=== PATIENT | male | born 2000 | race African-American/Black ===

== ENCOUNTER 2020-08-16 21:34 | Emergency (ER) | payer OTHER, SELFPAY ==
[2020-08-16] MEDS ORDERED: ACETAMINOPHEN 325 MG TABLET ONE (22:03)
--- NOTE | 2020-08-16 22:34 | EDPHYS ---
Physician Documentation [facility] Name: Cee Brown Age: 20 yrs Sex: Male : 2000 Arrival Date: 08/16/2020 Time: 21:35 Bed Waiting Private MD: ED Physician Blake Albrecht HPI: 08/16 22:06 This 20 yrs old Black Male presents to ER via Ambulatory with complaints of Sore Throat.cp 22:06 The patient presents with sore throat. Onset: The symptoms/episode began/occurred 3 cp day(s) ago. Associated signs and symptoms: Pertinent positives: fever, Pertinent negatives chills, cough, diarrhea, headache, vomiting, body aches. Historical: - Allergies: 21:46 No Known Allergies; ca1 - Home Meds: 21:46 None [Active]; ca1 - PMHx: 21:46 None; ca1 - PSHx: 21:46 None; ca1 - Immunization history:: Adult Immunizations up to date, Flu vaccine is not up to date. - Social history:: Smoking status: Patient denies any tobacco usage or history of. ROS: 22:07 Eyes: Negative for injury, pain, redness, and discharge. cp 22:07 Constitutional: Positive for fever, Negative for body aches, chills, poor PO intake. 22:07 ENT: Positive for ear pain, sore throat, Negative for sinus congestion, sinus pain. 22:07 Cardiovascular: Negative for chest pain, palpitations. 22:07 Respiratory: Negative for cough, shortness of breath, wheezing. 22:07 Skin: Negative for rash. 22:07 Neuro: Negative for headache. 22:07 All other systems are negative. Exam: 22:08 Head/Face: Normocephalic, atraumatic. cp 22:08 Constitutional: The patient appears in no acute distress, alert, awake, non-toxic, well developed, well nourished. 22:08 Eyes: Periorbital structures: appear normal, Conjunctiva: normal, no exudate, no injection, Lids and lashes: appear normal, bilaterally. 22:08 ENT: External ear(s): are unremarkable, Ear canal(s): are normal, clear, TM's: bulging, is not appreciated, bilaterally, erythema, that is mild, on the right, Nose: is normal, Mouth: Lips: moist, Oral mucosa: moist, Posterior pharynx: Airway: no evidence of obstruction, patent, Tonsils: bilaterally enlarged, with erythema, Uvula: midline, erythema, that is moderate. 22:08 Neck: Lymph nodes: no appreciated lymphadenopathy. 22:08 Chest/axilla: Inspection: normal. 22:08 Cardiovascular: Rate: normal. 22:08 Respiratory: the patient does not display signs of respiratory distress, Respirations: normal, no use of accessory muscles, labored breathing, is not present. Vital Signs: 21:43 BP 132 / 79; Pulse 85; Resp 16 S; Temp 100.5(TE); Pulse Ox 100% on R/A; Weight 77.11 kg ca1 (R); Height 6 ft. 0 in. (182.88 cm) (R); 21:43 Body Mass Index 23.06 (77.11 kg, 182.88 cm) ca1 MDM: 22:10 Differential diagnosis: apthous stomatitis, group A strep tonsillitis, latonia's angina, cp mononucleosis, peritonsillar abscess pharyngitis, retropharyngeal abcess tonsillitis, uvulitis. 22:33 Data reviewed: vital signs, nurses notes, lab test result(s), and as a result, I will cp discharge patient. 22:33 Counseling: I had a detailed discussion with the patient and/or guardian regarding: the cp historical points, exam findings, and any diagnostic results supporting the discharge/admit diagnosis, lab results, to return to the emergency department if symptoms worsen or persist or if there are any questions or concerns that arise at home. 22:34 Patient medically screened. cp 08/16 21:47 Order name: Flu ca1 08/16 21:47 Order name: Strep ca1 08/16 21:47 Order name: COVID-19 ca1 08/16 22:43 Order name: Throat Culture EDMS Administered Medications: 21:55 Drug: Tylenol 650 mg Route: PO; ca1 Disposition: 08/17 07:06 Co-signature as Attending Physician, Blake Albrecht MD. mh7 Disposition: 08/16/20 22:34 Discharged to Home. Impression: Acute tonsillitis, unspecified, Otitis media, unspecified, right ear. - Condition is Stable. - Discharge Instructions: Otitis Media, Adult, Tonsillitis. - Prescriptions for Augmentin 875- 125 mg Oral Tablet - take 1 tablet by ORAL route every 12 hours for 10 days; 20 tablet. Ibuprofen 800 mg Oral Tablet - take 1 tablet by ORAL route every 8 hours As needed take with food; 30 tablet. - Work release form, Medication Reconciliation Form, Thank You Letter, Antibiotic Education, Prescription Opioid Use form. - Follow up: Private Physician; When: 2 - 3 days; Reason: Worsening of condition. - Problem is new. - Symptoms are unchanged. Signatures: Dispatcher [employer] EDMS Marlon De Jesus RN RN sg Momo Moore PA PA cp Arabella Gruber RN RN ca1 Blake Albrecht MD MD mh7 Corrections: (The following items were deleted from the chart) 08/16 22:51 22:34 08/16/2020 22:34 Discharged to Home. Impression: Acute tonsillitis, unspecified; sg Otitis media, unspecified, right ear. Condition is Stable. Prescriptions for Augmentin 875-125 mg Oral Tablet - take 1 tablet by ORAL route every 12 hours for 10 days; 20 tablet, Ibuprofen 800 mg Oral Tablet - take 1 tablet by ORAL route every 8 hours As needed take with food; 30 tablet. and Forms are Medication Reconciliation Form, Thank You Letter, Antibiotic Education, Prescription Opioid Use. Follow up: Private Physician; When: 2 - 3 days; Reason: Worsening of condition. Problem is new. Symptoms are unchanged. cp 08/17 14:32 08/16 21:50 Differential diagnosis: apthous stomatitis, group A strep tonsillitis, cp latonia's angina, mononucleosis, peritonsillar abscess pharyngitis, retropharyngeal abcess tonsillitis, uvulitis, cp
--- NOTE | 2020-08-16 22:34 | ER ---
Nurse's Notes [facility] Name: Cee Brown Age: 20 yrs Sex: Male : 2000 Arrival Date: 08/16/2020 Time: 21:35 Bed Waiting Private MD: Diagnosis: Acute tonsillitis, unspecified;Otitis media, unspecified, right ear Presentation: 08/16 21:43 Chief complaint: Patient states: Bilateral ear pain, body aches, sore throat, ca1 headaches, muscle pains, fatigue x 3 days. Coronavirus screen: Client denies travel out of the [place] in the last 14 days. fatigue, headache, muscle pain, sore throat, Client presents with at least one sign or symptom that may indicate coronavirus-19. Standard/surgical mask placed on the client. Provider contacted for isolation considerations. The client denies any previous COVID testing. Ebola Screen: Patient negative for fever greater than or equal to 101.5 degrees Fahrenheit, and additional compatible Ebola Virus Disease symptoms Patient denies exposure to infectious person. Patient denies travel to an Ebola-affected area in the 21 days before illness onset. No symptoms or risks identified at this time. Initial Sepsis Screen: Does the patient meet any 2 criteria? No. Patient's initial sepsis screen is negative. Does the patient have a suspected source of infection? No. Patient's initial sepsis screen is negative. Risk Assessment: Do you want to hurt yourself or someone else? Patient reports no desire to harm self or others. Onset of symptoms was August 16, 2020. 21:43 Method Of Arrival: Ambulatory ca1 21:43 Acuity: ZACHARY 4 ca1 Historical: - Allergies: 21:46 No Known Allergies; ca1 - Home Meds: 21:46 None [Active]; ca1 - PMHx: 21:46 None; ca1 - PSHx: 21:46 None; ca1 - Immunization history:: Adult Immunizations up to date, Flu vaccine is not up to date. - Social history:: Smoking status: Patient denies any tobacco usage or history of. Screenin:00 Abuse screen: Denies threats or abuse. Nutritional screening: No deficits noted. ca1 Tuberculosis screening: No symptoms or risk factors identified. Fall Risk None identified. Assessment: 22:00 General: Appears in no apparent distress. comfortable, Behavior is calm, cooperative, ca1 appropriate for age. General:. Pain: Complains of pain in right ear and left ear Pain currently is 8 out of 10 on a pain scale. Pain began 2-3 days ago. Neuro: Level of Consciousness is awake, alert, obeys commands, Oriented to person, place, time, situation. EENT: Throat is reddened has enlarged tonsils bilaterally. EENT: Ear canal clear on left ear and right ear. Derm: Skin is intact, is healthy with good turgor, Skin is pink, warm \T\ dry. Musculoskeletal: Circulation, motion, and sensation intact. Capillary refill < 3 seconds. Vital Signs: 21:43 BP 132 / 79; Pulse 85; Resp 16 S; Temp 100.5(TE); Pulse Ox 100% on R/A; Weight 77.11 kg ca1 (R); Height 6 ft. 0 in. (182.88 cm) (R); 21:43 Body Mass Index 23.06 (77.11 kg, 182.88 cm) ca1 ED Course: 21:35 Patient arrived in ED. cl3 21:45 Triage completed. ca1 21:46 Arm band placed on right wrist. ca1 21:55 Flu Sent. ca1 21:55 Strep Sent. ca1 22:00 Patient has correct armband on for positive identification. ca1 22:00 No provider procedures requiring assistance completed. Flu and/or RSV swab sent to lab. ca1 Strep swab sent to lab. Patient did not have IV access during this emergency room visit. 22:06 Momo Moore PA is PHCP. sandy 22:06 Blake Albrecht MD is Attending Physician. cp Administered Medications: 21:55 Drug: Tylenol 650 mg Route: PO; ca1 Outcome: 22:34 Discharge ordered by . cp 22:51 Patient left the ED. sg Addendum: 08/18/2020 14:36 Addendum: COVID-19 Result: Negative result given to RN to notify pt. Attempted to d m5 contact pt regarding negative COVID-19 swab results. Unable to leave voice mail due to the number provided was either not a working number, the voice mail has not been set up, or the voice mailbox is full.. Signatures: Luisana Hansen RN RN dmMarlon Schwartz RN RN sg Page, Corey, PA PA cp Acob, Cheryl, RN RN ca1 Jack Harvey cl3
[2020-08-16 22:58] VITALS: BP 132/79; TEMP 100.5; O2SAT 100
== END 2020-08-16 22:51 | disposition home or self-care (01) ==
LOC: ER 21:34
DX: J03.90 Acute tonsillitis, unspecified (principal); Z20.828 Contact with and (suspected) exposure to other viral communicable diseases; H66.91 Otitis media, unspecified, right ear
CPT/HCPCS: 87070; 87081; 87804; 99283; U0002

== ENCOUNTER 2020-11-28 16:41 | Emergency (ER) | payer BC, SELFPAY ==
--- NOTE | 2020-11-28 19:14 | RAD REPORT ---
EXAM DESCRIPTION: RAD - Ankle Left 3 View -11/28/2020 5:53 pm CLINICAL HISTORY: Left ankle pain status post injury FINDINGS: No fracture or dislocation is seen. Marked lateral soft tissue swelling
--- NOTE | 2020-11-28 20:08 | EDPHYS ---
Physician Documentation [facility] Name: Cee Brown Age: 20 yrs Sex: Male : 2000 Arrival Date: 11/28/2020 Time: 16:42 Bed 27 Private MD: TEDDY Physician Momo Yañez HPI: 11/28 19:49 This 20 yrs old Black Male presents to ER via Ambulatory with complaints of Ankle Pain. cp 19:49 The patient presents with an injury, pain, that is acute. The complaints affect the cp left ankle. Onset: The symptoms/episode began/occurred 2 day(s) ago. Context: The problem was sustained at a sports field or court, The mechanism of injury involved inversion of the affected ankle. The patient can fully bear weight on the affected extremity. the patient is able to ambulate, with moderate difficulty. Associated signs and symptoms: Pertinent negatives: calf tenderness, numbness, tingling. Modifying factors: the symptoms are aggravated by weight bearing. Historical: - Allergies: 17:07 No Known Allergies; ss - Home Meds: 17:07 None [Active]; ss - PMHx: 17:07 None; ss - PSHx: 17:07 None; ss - Immunization history:: Adult Immunizations up to date. - Social history:: Smoking status: Patient denies any tobacco usage or history of. ROS: 19:52 Constitutional: Negative for fever. cp 19:52 MS/extremity: Positive for pain, swelling, tenderness, Negative for decreased range of motion, paresthesias. 19:52 Skin: Negative for rash. 19:52 All other systems are negative. Exam: 19:55 Musculoskeletal/extremity: Extremities: grossly normal except: noted in the lateral cp malleolus of left ankle: pain, swelling, tenderness, ROM: limited active range of motion due to pain, in the left ankle, Pulses: noted to be 2+ in the left dorsalis pedis artery, Sensation intact. Achilles tendon palpated and intact, no pain palpated at proximal left fibula and/or base of fifth left metatarsal. Vital Signs: 17:05 BP 139 / 71; Pulse 62; Resp 14; Temp 99.0(TE); Pulse Ox 99% ; Weight 77.11 kg; Height 6 ss ft. 0 in. (182.88 cm); Pain 7/10; 17:05 Body Mass Index 23.06 (77.11 kg, 182.88 cm) Procedures: 20:35 Splinting: Splint applied to left ankle using Air Cast, applied by nurse. Examined by cp me, post splint application: neurovascular intact, Patient tolerated well. MDM: 19:39 Patient medically screened. cp 20:00 Differential diagnosis: fracture, sprain, dislocation. cp 20:06 Data reviewed: vital signs, nurses notes, radiologic studies, plain films. cp 20:06 Test interpretation: by ED physician or midlevel provider: xrays of left ankle negative cp for fracture. Counseling: I had a detailed discussion with the patient and/or guardian regarding: the historical points, exam findings, and any diagnostic results supporting the discharge/admit diagnosis, radiology results, the need for outpatient follow up, a family practitioner. Response to treatment: the patient's symptoms have mildly improved after treatment, and as a result, I will discharge patient. 11/28 17:07 Order name: XRAY Ankle LEFT 3 view; Complete Time: 19:36 11/28 19:49 Order name: Crutches; Complete Time: 20:39 cp 11/28 19:49 Order name: Aircast Ankle Splint; Complete Time: 20:39 cp Administered Medications: 20:02 Drug: Ibuprofen 800 mg Route: PO; 20:39 Follow up: Response: No adverse reaction em Disposition: 20:15 Chart complete. 11/29 11:11 Co-signature as Attending Physician, Momo Yañez MD I agree with the assessment and apurva plan of care. Disposition: 11/28/20 20:07 Discharged to Home. Impression: Sprain of ankle - left. - Condition is Stable. - Discharge Instructions: Elastic Bandage and RICE, Ankle Sprain. - Prescriptions for Ibuprofen 800 mg Oral Tablet - take 1 tablet by ORAL route every 8 hours As needed take with food; 30 tablet. - Medication Reconciliation Form, Thank You Letter, Antibiotic Education, Prescription Opioid Use form. - Follow up: Private Physician; When: 2 - 3 days; Reason: Worsening of condition. - Problem is new. - Symptoms have improved. Signatures: Dispatcher [employer] Marlon Tena RN RN sg Anderson, Corey, MD MD cha Munoz, Edgar, RN RN Lisa Hester RN RN Page, Momo, PA PA cp Corrections: (The following items were deleted from the chart) 11/28 20:42 20:07 11/28/2020 20:07 Discharged to Home. Impression: Sprain of ankle - left. em Condition is Stable. Forms are Medication Reconciliation Form, Thank You Letter, Antibiotic Education, Prescription Opioid Use. Follow up: Private Physician; When: 2 - 3 days; Reason: Worsening of condition. Problem is new. Symptoms have improved. cp
--- NOTE | 2020-11-28 20:08 | ER ---
Nurse's Notes [facility] Name: Cee Brown Age: 20 yrs Sex: Male : 2000 Arrival Date: 11/28/2020 Time: 16:42 Bed 27 Private MD: Diagnosis: Sprain of ankle-left Presentation: 11/28 17:05 Chief complaint: Patient states: L ankle pain that began Friday evening after landing ss wrong while playing basketball. Coronavirus screen: Client denies travel out of the [place] in the last 14 days. Ebola Screen: Patient denies exposure to infectious person. Patient denies travel to an Ebola-affected area in the 21 days before illness onset. Initial Sepsis Screen: Does the patient meet any 2 criteria? No. Patient's initial sepsis screen is negative. Does the patient have a suspected source of infection? No. Patient's initial sepsis screen is negative. Risk Assessment: Do you want to hurt yourself or someone else? Patient reports no desire to harm self or others. Onset of symptoms was November 25, 2020. 17:05 Method Of Arrival: Ambulatory ss 17:05 Acuity: ZACHARY 4 ss Historical: - Allergies: 17:07 No Known Allergies; ss - Home Meds: 17:07 None [Active]; ss - PMHx: 17:07 None; ss - PSHx: 17:07 None; ss - Immunization history:: Adult Immunizations up to date. - Social history:: Smoking status: Patient denies any tobacco usage or history of. Screenin:00 Abuse screen: Denies threats or abuse. Nutritional screening: No deficits noted. em Tuberculosis screening: No symptoms or risk factors identified. Fall Risk None identified. Assessment: 20:00 General: Appears in no apparent distress. comfortable, Behavior is calm, cooperative, em appropriate for age. Pain: Complains of pain in left foot. Neuro: Level of Consciousness is awake, alert, obeys commands, Oriented to person, place, time, situation, Appropriate for age. Cardiovascular: Capillary refill < 3 seconds Patient's skin is warm and dry. Respiratory: Airway is patent Respiratory effort is even, unlabored, Respiratory pattern is regular, symmetrical. Derm: Skin is intact, is healthy with good turgor, Skin is pink, warm \T\ dry. Musculoskeletal: Capillary refill < 3 seconds, Range of motion: intact in all extremities, Swelling absent. Vital Signs: 17:05 BP 139 / 71; Pulse 62; Resp 14; Temp 99.0(TE); Pulse Ox 99% ; Weight 77.11 kg; Height 6 ss ft. 0 in. (182.88 cm); Pain 7/10; 17:05 Body Mass Index 23.06 (77.11 kg, 182.88 cm) ED Course: 16:42 Patient arrived in ED. ag5 17:06 Triage completed. ss 17:07 Arm band placed on left wrist. ss 18:19 XRAY Ankle LEFT 3 view In Process Unspecified. EDMS 18:20 Momo Moore PA is PHCP. cp 18:20 Momo Yañez MD is Attending Physician. cp 19:36 Bravo Martinez, RN is Primary Nurse. mw2 20:39 No provider procedures requiring assistance completed. Patient did not have IV access em during this emergency room visit. Administered Medications: 20:02 Drug: Ibuprofen 800 mg Route: PO; 20:39 Follow up: Response: No adverse reaction em Outcome: 20:07 Discharge ordered by MD. cp 20:39 Discharged to home with crutches. em 20:39 Condition: good 20:39 Discharge instructions given to patient, Instructed on discharge instructions, follow up and referral plans. medication usage, Demonstrated understanding of instructions, follow-up care, medications, Prescriptions given X 1. 20:42 Patient left the ED. em Signatures: Dispatcher [employer] Marlon Tena RN RN Bravo Martinez RN RN em Smirch, Shelby, RN RN Momo Moore PA PA cp [place], MyKena mw2 Calixto Zuleta ag5
[2020-11-28] MEDS ORDERED: IBUPROFEN 400 MG TAB ONE (20:19)
[2020-11-28 20:48] VITALS: BP 139/71; TEMP 99; O2SAT 99
== END 2020-11-28 20:42 | disposition home or self-care (01) ==
LOC: ER 16:41
DX: S93.402A Sprain of unspecified ligament of left ankle, initial encounter (principal); X58.XXXA Exposure to other specified factors, initial encounter; Y93.9 Activity, unspecified; Y92.89 Other specified places as the place of occurrence of the external cause
CPT/HCPCS: 99283

== ENCOUNTER 2024-12-27 10:01 | Emergency (ER) | payer BC, SELFPAY ==
--- OUTSIDE RECORDS SUMMARY | 2024-12-27 10:05 | XMS REPORT | Continuity of Care Document ---
Author Name Unknown Address [address] [place] [address] [facility] thconnect Address [address] [place] [address] Care Team Providers Care Research Associate Quality Control Qc Name Role Phone LAB90 Attending Clinician Unavailable DEBRA CARDENAS Attending Clinician Unava ilable GUU_SHENG_YAW Attending Clinician Unavailable GUU_SHENG_YAW Admitting Clinician Unavailable Payers Payer Name Policy Type Policy Number Effective Date Expirati on Date Source BCBS 2 [id number] 2023 00:00:00 Social History Social Habit Start Date Stop Date Quantity Comments Source Sexual orientation Suma Finley - External Alcohol intake 2023-12-25 00:00:00 2023-12-25 00:00:00 Current drinker of alcohol (finding) Yaneth Finley - External Tobacco use and exposure 2023-12-24 00:00:00 2023-12-24 00:00:00 Smokeless tobacco non-user Yaneth Finley - External History of Social function 2023-12-24 00:00:00 2023-12-24 00:00:00 Yaneth Finley - External Sex Assigned At 2000 00:00:00 2000 00:00:00 Yaneth Finley - External Smoking Status Start Date Stop Date Source Never smoked tobacco Yaneth Finley - External Vital Signs Vital Name Observation Time Observation Value Comments S ource Heart rate 2023-12-25 15:49:00 68 /min David Finley - External Body temperature 2023-12-25 15:49:00 36.72 Cinthya Yaneth Finley - External Respiratory rate 2023-12-25 15:49:00 18 /min Yaneth Pazclive - External Body height 2023-12-25 15:49:00 182.9 cm Geovanna Finley - External Body weight 2023-12-25 15:49:00 72.576 kg Geovanna Zeeold - External BMI 2023-12-25 15:49:00 21.70 kg/m2 Geovanna Finley - External Oxygen saturation in Arterial blood by Pulse oximetry 2023-12-25 15:49:00 98 /min Yaneth Pazjesus ld - External Systolic blood pressure 2023-12-25 15:49:00 114 mm[Hg] Yaneht Sejesus ld - External Diastolic blood pressure 2023-12-25 15:49:00 70 mm[Hg] Yaneth Sejaycobo ld - External Encounters Start Date/Time End Date/Time Encounter Type Admission Type Attending [facility] Care Department Encounter ID Source 2023-12-25 10:05:00 2023-12-25 10:05:00 Outpatient LAB90 [facility] [id number] [facility] 2023-12-25 09:30:00 2023-12-25 09:30:00 Outpatient DEBRA CARDENAS [id number] Yanethvesta Finley 2023-11-11 00:00:00 2023-11-11 00:00:00 Outpatient GUU_SHENG_Y AW [facility] [id number] [facility] Program Notes Date/Time Note Provider Source 2023-12-25 09:52:32 Chief Complaint Patient presents with New Patient Establish Care Wants to get tested for STD Kaela Garibay [facility]
--- NOTE | 2024-12-27 10:30 | RAD REPORT ---
EXAMINATION: XR RIGHT ANKLE CLINICAL INDICATION: . PAIN TECHNIQUE:Two view radiograph of the right ankle were obtained. COMPARISON: No prior exam. FINDINGS: No bone or joint abnormality detected.
--- NOTE | 2024-12-27 10:53 | ER ---
Nurse's Notes [facility] Name: Cee Brown Age: 24 yrs Sex: Male : 2000 Arrival Date: 12/27/2024 Time: 10:01 Bed 9 Private MD: Diagnosis: Sprain of ankle-right Presentation: 12/27 10:10 Chief complaint: Patient states: hurt right ankle/right foot "stepping down" at work. aa5 Coronavirus screen: At this time, the client does not indicate any symptoms associated with coronavirus-19. Ebola Screen: Patient denies travel to an Ebola-affected area in the 21 days before illness onset. Initial Sepsis Screen: Does the patient meet any 2 criteria? No. Patient's initial sepsis screen is negative. Does the patient have a suspected source of infection? No. Patient's initial sepsis screen is negative. Risk Assessment: Do you want to hurt yourself or someone else? Patient reports no desire to harm self or others. Onset of symptoms was December 2024. 10:10 Method Of Arrival: Ambulatory aa5 10:10 Acuity: ZACHARY 4 aa5 Historical: - Allergies: 10:11 No Known Allergies; aa5 - PMHx: 10:11 None; aa5 - PSHx: 10:11 left leg; aa5 - Immunization history:: Adult Immunizations unknown. - Infectious Disease History:: Denies. - Social history:: Smoking status: Patient denies any tobacco usage or history of. Screenin:10 [facility] ED Fall Risk Assessment (Adult) History of falling in the last 3 months, aa5 including since admission No falls in past 3 months (0 pts) Confusion or Disorientation No (0 pts) Intoxicated or Sedated No (0 pts) Impaired Gait No (0 pts) Mobility Assist Device Used No (0 pt) Altered Elimination No (0 pt) Score/Fall Risk Level 0 - 2 = Low Risk Oriented to surroundings, Maintained a safe environment, Educated pt \\T\\ family on fall prevention, incl call for assistance when getting out of bed, Assessed \\T\\ reinforced patient's understanding of fall precautions. Abuse screen: Denies threats or abuse. Nutritional screening: No deficits noted. Tuberculosis screening: No symptoms or risk factors identified. Assessment: 10:10 General: Appears comfortable, Behavior is calm, cooperative. Pain: Complains of pain in aa5 right ankle. Neuro: Level of Consciousness is awake, alert, obeys commands, Oriented to person, place, time, situation. Cardiovascular: Patient's skin is warm and dry. Respiratory: Airway is patent Respiratory effort is even, unlabored, Respiratory pattern is regular, symmetrical. GI: No signs and/or symptoms were reported involving the gastrointestinal system. : No signs and/or symptoms were reported regarding the genitourinary system. EENT: No signs and/or symptoms were reported regarding the EENT system. Derm: Skin is dry, Skin is normal, Skin temperature is warm. Musculoskeletal: right ankle. 11:24 Neuro: Level of Consciousness is awake, alert, obeys commands, Oriented to person, aa5 place, time, situation. Respiratory: Airway is patent Respiratory effort is even, unlabored, Respiratory pattern is regular, symmetrical. Derm: Skin is dry, Skin is normal, Skin temperature is warm. Vital Signs: 10:10 BP 133 / 79; Pulse 67; Resp 18 S; Temp 97.5(TE); Pulse Ox 99% on R/A; Weight 72.57 kg aa5 (R); Height 6 ft. 0 in. (R); 10:10 Body Mass Index 21.70 (72.57 kg, 182.88 cm) aa5 ED Course: 10:05 Patient arrived in ED. cj3 10:08 Momo Moore PA is PHCP. cp 10:08 Sukhwinder Sims MD is Attending Physician. cp 10:10 Arm band placed on. aa5 10:10 Patient has correct armband on for positive identification. Bed in low position. Call aa5 light in reach. Side rails up X 1. 10:11 Triage completed. aa5 10:12 Caren Mtz, YFN is Primary Nurse. aa5 10:24 XRAY Ankle RIGHT 3 view In Process Unspecified. EDMS 10:52 Christiano Goldberg MD is Referral Physician. cp 11:24 No provider procedures requiring assistance completed. Patient did not have IV access aa5 during this emergency room visit. Administered Medications: No medications were administered Medication: 10:10 VIS not applicable for this client. aa5 Outcome: 10:53 Discharge ordered by MD. cp 11:24 Discharged to home ambulatory, aa5 11:24 Condition: good 11:24 Discharge instructions given to patient, Instructed on discharge instructions, follow up and referral plans. Demonstrated understanding of instructions, follow-up care, 11:26 Patient left the ED. aa5 Signatures: Dispatcher [employer] Caren Lamb RN RN aa5 Momo Moore PA PA cp Johnson, Celeste cj3 Corrections: (The following items were deleted from the chart) 10:11 10:11 PSHx: None; aa5 aa5 19:32 11:24 Reassessment: Patient is alert, oriented x 3, equal unlabored respirations, skin aa5 warm/dry/pink. aa5 19:32 10:10 Derm: Skin is pink, warm \\T\\ dry. aa5 aa5
--- NOTE | 2024-12-27 10:53 | EDPHYS ---
Physician Documentation [facility] Name: Cee Brown Age: 24 yrs Sex: Male : 2000 Arrival Date: 12/27/2024 Time: 10:01 Bed 9 Private MD: ED Physician Sukhwinder Sims HPI: 12/27 10:10 This 24 yrs old Black Male presents to ER via Ambulatory with complaints of Ankle Pain. cp 10:10 The patient presents with an injury. cp 10:10 The complaints affect the right ankle. Context: The problem was sustained at work, cp resulted from a mis-step by the patient, The patient can fully bear weight on the affected extremity. the patient is able to ambulate, with mild difficulty. Associated signs and symptoms: The patient has no apparent associated signs or symptoms. Historical: - Allergies: 10:11 No Known Allergies; aa5 - PMHx: 10:11 None; aa5 - PSHx: 10:11 left leg; aa5 - Immunization history:: Adult Immunizations unknown. - Infectious Disease History:: Denies. - Social history:: Smoking status: Patient denies any tobacco usage or history of. ROS: 10:15 MS/extremity: Positive for pain, tenderness, of the lateral side of right ankle, cp Negative for decreased range of motion, deformity, paresthesias, 10:15 Constitutional: Negative for body aches, chills, fever, poor PO intake, cp 10:15 Eyes: Negative for injury, pain, redness, and discharge, cp 10:15 Neck: Negative for pain with movement, pain at rest, stiffness, 10:15 Back: Negative for pain at rest, pain with movement, 10:15 All other systems are negative, Exam: 10:20 Constitutional: The patient appears in no acute distress, alert, awake, well developed, cp well nourished, 10:20 Head/Face: Normocephalic, atraumatic. cp 10:20 Musculoskeletal/extremity: Extremities: noted in the right ankle: tenderness and pain lateral malleolus, minimal swelling, pain with passive ROM, Perfusion: the extremity is normally perfused throughout, the right foot Sensation intact. Achilles tendon palpated and non-tender, intact. Vital Signs: 10:10 BP 133 / 79; Pulse 67; Resp 18 S; Temp 97.5(TE); Pulse Ox 99% on R/A; Weight 72.57 kg aa5 (R); Height 6 ft. 0 in. (R); 10:10 Body Mass Index 21.70 (72.57 kg, 182.88 cm) aa5 MDM: 10:09 Medical Screening Exam initiated cp 10:30 Differential diagnosis: fracture, sprain, strain, tendonitis, Achilles rupture. cp 10:51 Data reviewed: vital signs, nurses notes, radiologic studies, plain films, and as a cp result, I will discharge patient. Independent interpretation of the following test(s) in the Emergency Department X-Ray: My interpretation is images of right ankle negative for fracture. 10:52 Counseling: I had a detailed discussion with the patient and/or guardian regarding the cp historical points, exam findings, and any diagnostic results supporting the discharge/admit diagnosis, radiology results, to return to the emergency department if symptoms worsen or persist or if there are any questions or concerns that arise at home. 12/27 10:11 Order name: XRAY Ankle RIGHT 3 view; Complete Time: 10:47 cp 12/27 10:49 Interpretation: Report reviewed. cp Administered Medications: No medications were administered Disposition Summary: 12/27/24 10:53 Discharge Ordered Notes: Location: Home cp Problem: new cp Symptoms: have improved cp Condition: Stable cp Diagnosis - Sprain of ankle - right cp Followup: cp - With: Christiano Goldberg MD - When: 5 - 6 days - Reason: Worsening of condition Discharge Instructions: - Discharge Summary Sheet cp - Ankle Sprain cp Forms: - Medication Reconciliation Form cp - Antibiotic Education cp - Prescription Opioid Use cp - Patient Portal Instructions cp - Leadership Thank You Letter cp Prescriptions: - Ibuprofen 800 mg Oral Tablet - take 1 tablet ORAL route every 8 hours As needed take with food; 30 tablet; cp Refills: 0, Product Selection Permitted Addendum: 12/28/2024 20:22 I was immediately available for consultation during this patient's visit. I did not e c2 personally see the patient or discuss the patient with the [facility]. . Signatures: Dispatcher [employer] Caren Lamb RN RN aa5 Momo Moore PA PA Sukhwinder Covarrubias MD MD ec2 Corrections: (The following items were deleted from the chart) 12/27 10:11 10:11 PSHx: None; aa5 aa5 10:12 10:12 Ankle Right 3 View+[email or web address] ordered. EDMS EDMS
[2024-12-27 11:30] VITALS: BP 133/79; TEMP 97.5; O2SAT 99
== END 2024-12-27 11:26 | disposition home or self-care (01) ==
LOC: ER 10:01
DX: S93.401A Sprain of unspecified ligament of right ankle, initial encounter (principal)
CPT/HCPCS: 99282